=== PATIENT | female | born 1985 | race Two or more races ===

== ENCOUNTER 2018-09-04 16:31 | Emergency (ER) | payer OTHER ==
[~2018-09-04] VITALS: Ht 152.4 cm; Wt 95.3 kg
[~2018-09-04 16:31] MED LIST: IBUPROFEN600 MG ORAL; IBUPROFEN800 MG ORAL
[2018-09-04] MEDS ORDERED: NKM (16:40)
--- NOTE | 2018-09-04 16:45 | NUR ---
ED Nurse Note: pt walked in to ER c/o Rt shoulder pain aftr waiting table yesterday at event. pt aao x4 and ambulatory. skin clean and intact.
[2018-09-04 16:46] VITALS: BP 115/79
--- NOTE | 2018-09-04 16:53 | Emergency Room Report ---
History of Present Illness General Chief Complaint: Upper Extremity Injury Source: Patient Present Illness HPI Patient is a 32-year-old female presents after increased right upper extremity pain. Patient reports having increased soreness to the posterior right shoulder. This began after work. Patient reports having increased pain after lifting some trays. She reports having pain worse with movement. She denies any fever. She denies any prior past medical history. She denies any abdominal pain. She had not been vomiting. She denies any fever. She denies any chest discomfort. She denied to have any cough or leg swelling. Allergies: Coded Allergies: No Known Allergies (Unverified , 07/29/13) Patient History Past Medical History: see triage record Last Menstrual Period: 08/08/18 Reviewed Nursing Documentation: PMH: Agreed; PSxH: Agreed Nursing Documentation-PMH Past Medical History: No History, Except For Hx Cardiac Problems: No - SURGERY FOR TORN LEFT MENISCUS, ACL 2009 Hx Diabetes: Yes Review of Systems All Other Systems: negative except mentioned in HPI Physical Exam Vital Signs Date Time Temp Pulse Resp B/P (MAP) Pulse Ox O2 Delivery O2 Flow Rate FiO2 09/04/18 16:36 98.1 92 17 115/79 (91) 99 Room Air General Appearance: well appearing, no apparent distress, alert, GCS 15 Head: normocephalic, atraumatic ENT: hearing grossly normal, normal voice Neck: full range of motion, supple Respiratory: chest non-tender, lungs clear, normal breath sounds, no respiratory distress, speaking full sentences Gastrointestinal: normal inspection Musculoskeletal: normal range of motion, other - tenderness to lower medial scapula Neurologic: normal inspection, alert, oriented x3, responsive, normal gait Psychiatric: mood/affect normal Skin: no rash Medical Decision Making Diagnostic Impression: Primary Impression: Shoulder pain, right Additional Impression: Muscle strain ER Course . Patient presented for shoulder pain. Differential diagnosis include was not limited to rotator cuff injury, scapular dysfunction, tendinitis, muscle strain among others. Patient has a benign exam and does not appear to require any further imaging or laboratory testing at this time. Patient was noted to have what appears to be a muscle strain. Patient was placed in a sling for comfort. She is given NSAIDs. She is advised to follow-up with workers comp physician for recheck.Patient will be placed on light duty and is to rest her right upper extremity. Labs Test 09/04/18 16:50 Urine HCG, Qualitative Negative (NEGATIVE) Last Vital Signs Date Time Temp Pulse Resp B/P (MAP) Pulse Ox O2 Delivery O2 Flow Rate FiO2 09/04/18 16:46 98.1 81 17 115/79 99 Room Air Status: improved Disposition: HOME, SELF-CARE Condition: Stable Scripts Famotidine (PEPCID AC) 20 Mg Tablet 20 MG PO DAILY, #14 TAB Prov: Fly Berrios MD 09/04/18 Ibuprofen* (MOTRIN*) 600 Mg Tablet 600 MG ORAL Q8H PRN for For Pain, #30 TAB 0 Refills Prov: Fly Berrios MD 09/04/18 Fly Berrios MD Sep 04, 2018 16:53
[2018-09-04] MEDS ORDERED: IBUPROFEN600 MG ORAL (16:56)
[2018-09-04] MEDS ORDERED: PEPCID AC20 M2 PO (16:56)
[2018-09-04 17:31] VITALS: BP 115/79
--- NOTE | 2018-09-04 17:32 | NUR ---
ER DISCHARGE NOTE: Patient is cleared to be discharged per ERMD after sling applied on Rt arm, pt is aox4, on room air, with stable vital signs. pt was given dc and prescription instructions, pt was able to verbalize understanding, pt id band removed. pt is able to ambulate with steady gait. pt took all belongings.
== END 2018-09-04 17:33 | disposition home or self-care (01) ==
LOC: EMR 17:00
DX: S46.911A Strain of unspecified muscle, fascia and tendon at shoulder and upper arm level, right arm, initial encounter (principal); X50.0XXA Overexertion from strenuous movement or load, initial encounter; Y92.59 Other trade areas as the place of occurrence of the external cause; Y99.0 Civilian activity done for income or pay; E11.9 Type 2 diabetes mellitus without complications
CPT/HCPCS: 81025; 99283